=== PATIENT | female | born 1940 | race Caucasian/White ===

== ENCOUNTER → 2020-03-24 | Outpatient (CLI) | payer MEDICARE, OTHER ==
[~2020-03-24] MED LIST: HYDROCODON-ACE1 EAC4 PO
== END ==
LOC: KOH-I 13:39
DX: S92.324A Nondisplaced fracture of second metatarsal bone, right foot, initial encounter for closed fracture (principal); S92.344A Nondisplaced fracture of fourth metatarsal bone, right foot, initial encounter for closed fracture; S92.334A Nondisplaced fracture of third metatarsal bone, right foot, initial encounter for closed fracture; M19.071 Primary osteoarthritis, right ankle and foot; X58.XXXA Exposure to other specified factors, initial encounter
CPT/HCPCS: 73630

== ENCOUNTER → 2020-04-28 | Outpatient (CLI) | payer MEDICARE, OTHER | LOC: KOH-I 12:46 | DX: S92.321D Displaced fracture of second metatarsal bone, right foot, subsequent encounter for fracture with routine healing (principal); S92.331D Displaced fracture of third metatarsal bone, right foot, subsequent encounter for fracture with routine healing; S92.341D Displaced fracture of fourth metatarsal bone, right foot, subsequent encounter for fracture with routine healing | CPT/HCPCS: 73630 ==

== ENCOUNTER → 2020-06-30 | Outpatient (CLI) | payer MEDICARE, OTHER | LOC: KOH-I 13:22 | DX: S92.321D Displaced fracture of second metatarsal bone, right foot, subsequent encounter for fracture with routine healing (principal); S92.331D Displaced fracture of third metatarsal bone, right foot, subsequent encounter for fracture with routine healing | CPT/HCPCS: 73630 ==